=== PATIENT | female | born 1955 | race Hispanic/Latino ===

== ENCOUNTER 2024-06-12 12:03 | Emergency (ER) | payer OTHER ==
[~2024-06-12] VITALS: Ht 162.6 cm; Wt 81.7 kg
[2024-06-12] MEDS ORDERED: IBANDRONATE SO150 MG (12:42)
[2024-06-12] MEDS ORDERED: ATORVASTATIN CA20 MG PO (12:42)
[2024-06-12] MEDS ORDERED: METFORMIN HCL500 MG PO (12:42)
[2024-06-12] MEDS ORDERED: VITAMIN D31250 MCG (12:42)
[2024-06-12] MEDS ORDERED: LOSARTAN POTASS25 MG PO (12:42)
[2024-06-12] MEDS ORDERED: OMEPRAZOLE40 MG PO (12:42)
[2024-06-12] MEDS ORDERED: NEURONTIN100 MG PO (12:45)
[2024-06-12] MEDS ORDERED: NAPROSYN500 MG PO (13:22)
[2024-06-12] MEDS ORDERED: CYCLOBENZAPRINE5 MG PO (13:24)
[2024-06-12 14:16] VITALS: PULSE 68; RESP 16; TEMP 98.5; O2SAT 99
== END 2024-06-12 14:24 | disposition home or self-care (01) ==
LOC: FSED 12:06
DX: M47.817 Spondylosis without myelopathy or radiculopathy, lumbosacral region (principal); M48.54XA Collapsed vertebra, not elsewhere classified, thoracic region, initial encounter for fracture; G62.9 Polyneuropathy, unspecified; I10 Essential (primary) hypertension; E78.5 Hyperlipidemia, unspecified
CPT/HCPCS: 72110; 99284